=== PATIENT | male | born 1945 | race Caucasian/White ===

== ENCOUNTER 2017-05-31 13:18 | Emergency (ER) | payer MEDICARE ==
[~2017-05-31] VITALS: Ht 190.5 cm; Wt 106.6 kg
--- NOTE | ~2017-05-31 | CR2 ---
[facility] A Service of [facility] RADIOLOGY TEXT RESULTS PATIENT: DALE MALHOTRA LOCATION: [facility] : 43 UNIT #: [id number] AGE: [address]: Willis Sibley MD SEX: M ORDER DR: [id number] [place] [address] [facility]. [place], [place] [address] [id number] MR#: [id number] Acc #: [id number] NAME: DALE MALHOTRA : 1945 SEX: M STUDY DATE/TIME: 05/31/2017 15:31 UNIT: [facility] ROOM: STUDY DESCRIPTION: CR Abdomen Acute Series Attending Physician: Willis Sibley M.D. Ordering Physician: Willis Sibley M.D. Primary Care Physician: Nola Amezquita M.D. MEDICAL IMAGING REPORT This report is preliminary unless electronic signature is present EXAM Acute abdominal series. Date: 05/31/2017 HISTORY Nausea, vomiting, diarrhea, left side abdominal pain today. COMPARISON PA and lateral chest radiograph 06/09/2010. FINDINGS No acute airspace disease. Heart size within normal limits. No pleural effusion or pneumothorax. Nonspecific but nonobstructive appearing bowel gas pattern. No gross free air, pneumatosis, organomegaly or abnormal soft tissue calcification is seen. Marginal osteophyte formation is present in the lumbar spine. Advanced diminished disc height is present at L4-5, greatest on the left. Right hip replacement changes are present. IMPRESSION 1. No acute findings within the chest or abdomen. 2. Advanced degenerative disc endplate changes at L4-5. 3. Right hip replacement. Dictated by... Jazlyn Cisneros M.D. THIS IS AN ELECTRONICALLY VERIFIED REPORT Jazlyn Cisneros M.D. at 06/01/2017 10:51 AM LLH/lb TD: 06/01/2017 10:16 JOB #: [id number] [facility] A Service of [facility] RADIOLOGY TEXT RESULTS PATIENT: DALE MALHOTRA LOCATION: [facility] #: [id number] : 43 UNIT #: [id number] AGE: [address]: Willis Sibley MD SEX: M ORDER DR: MEDICAL IMAGING REPORT Page 1 of 1 COPY
[~2017-05-31 13:18] MED LIST: ALLEGRA180 MG PO; ALLOPURINOL300 MG PO; ASPERDRINK81 MG PO; AVODART0.5 MG PO; BENICAR HCT 40-1 TA2 PO; COUMADIN6 MG PO; FISH OIL 1,01 CAP.EC PO; FLONASE 0.05% N16 G1; GLUCOSAMINE CHO PO; HYDROCODONE-APA1 T44 PO; LIPITOR40 MG PO; MULTIVITAMIN1 UDCAP PO; SINGULAIR PO; VOLTAREN75 MG PO
[2017-05-31 14:47] LABS: URINE SOURCE CLEAN CATCH
[2017-05-31 14:56] LABS: URINE APPEARANCE CLEAR; URINE BLOOD NEG (NEG); URINE COLOR DK YELLOW; URINE GLUCOSE NEG (NEG); URINE KETONE TRACE (NEG); URINE LEUKOCYTE ESTERASE TRACE (NEG); URINE NITRATE NEG (NEG); URINE PROTEIN TRACE (NEG); URINE SPECIFIC GRAVITY 1.031 (1.003-1.035); URINE UROBILINOGEN 0.2 MG/DL (NEG)
[2017-05-31 15:02] LABS: URINE BACTERIA AUWI NEG (NEGATIVE); URINE SQUAMOUS EPITHELIAL CELL OCC /[HPF]; UWBCS1 AUWI 0-2 (0-5)
[2017-05-31 15:05] LABS: CULTURE INDICATED? NO; URINE BILIRUBIN NEG (NEG)
[2017-05-31 15:29] LABS: BASOPHIL% 0.4 % (0-2.5); EOSINOPHIL# 0.1 X10e3 (0-0.7); EOSINOPHIL% 0.5 % (0.0-7.0); HEMATOCRIT 46.9 % (38.0-50.0); HEMOGLOBIN 16.3 gm/dL (13.0-16.0); LYMPHOCYTE# 0.2 X10e3 (1.0-3.5); LYMPHOCYTE% 1.7 % (17.0-45.0); MEAN CELL VOLUME 88.2 FL (83-96); MEAN CORPUSCULAR HEMOGLOBIN 30.6 PG (28-34); MEAN CORPUSCULAR HGB CONC 34.7 g/dL (30-36); MEAN PLATELET VOLUME 8.2 FL (6.5-11.5); MONOCYTE# 0.5 X10e3 (0-1.0); NEUTROPHIL# 10.2 X10e3 (1.5-7.1); NEUTROPHIL% 92.4 % (40-75); PLATELET COUNT 192 X10e3 (140-420); RED BLOOD COUNT 5.32 X10e (3.90-5.60); RED CELL DISTRIBUTION WIDTH 14.7 % (11.0-15.5); WHITE BLOOD COUNT 11.1 X10e3 (4.0-10.5)
[2017-05-31 15:33] LABS: DIFF IND NO
[2017-05-31 16:02] LABS: ALBUMIN SERUM 4.1 g/dL (3.5-5.0); BILIRUBIN, DIRECT 0.2 mg/dL (0.0-0.2); BILIRUBIN,INDIRECT 1.3 mg/dL (0.0-0.9); BILIRUBIN,TOTAL 1.5 mg/dL (0.2-2.0); BUN/CREATININE RATIO 25.55; CALCIUM SERUM 8.7 mg/dL (8.4-10.2); CREATININE SERUM 0.9 mg/dL (0.6-1.4); GLOM FILT RATE Estimated 84.4 mL/min (>60); POTASSIUM 3.5 mmol/L (3.5-5.1)
== END 2017-05-31 17:50 | disposition home or self-care (01) ==
LOC: CED 13:18
DX: R11.2 Nausea with vomiting, unspecified (principal); R19.7 Diarrhea, unspecified; I10 Essential (primary) hypertension; Z88.0 Allergy status to penicillin; Z88.5 Allergy status to narcotic agent
CPT/HCPCS: 36415; 74022; 80048; 80076; 81003; 83690; 85025; 96361; 96374; 99284; J2405